=== PATIENT | male | born 1960 | race Caucasian/White ===

== ENCOUNTER → 2018-08-10 | Outpatient (CLI) | payer BC ==
--- NOTE | 2018-08-10 15:29 | RAD ---
5 views lumbar spine without comparison for low back pain, history of surgery. FINDINGS: Pedicle screw and laisha fixation of T11 and T12 is noted. Severe degenerative changes are seen at L4-5, and L5-S1 with vacuum phenomenon at these levels. There is also facet arthrosis at these levels. More moderate changes are seen at L2-3. There is straightening of the normal lumbar lordosis. No alignment abnormality is seen. No fracture or acute osseous abnormality is evident. Moderate atherosclerosis is seen. IMPRESSION: 1. No acute osseous or alignment abnormality of the lumbar spine. 2. Moderate to severe multifocal degenerative and postsurgical changes as described. Electronically signed by: Alex Love MD (08/10/2018 3:26 PM) [id number]
== END | disposition home or self-care (01) ==
LOC: PMG 10:01
PROVIDERS: ATTEND Physician Assistant
DX: M47.26 Other spondylosis with radiculopathy, lumbar region (principal); M47.818 Spondylosis without myelopathy or radiculopathy, sacral and sacrococcygeal region; M12.88 Other specific arthropathies, not elsewhere classified, other specified site; I70.90 Unspecified atherosclerosis
CPT/HCPCS: 72110